=== PATIENT | female | born 1965 | race Asian ===

== ENCOUNTER → 2017-01-14 | Outpatient (CLI) | payer OTHER ==
--- NOTE | 2017-01-14 08:51 | DIAGNOSTIC IMAGING REPORT ---
ABDOMINAL ULTRASOUND, RIGHT UPPER QUADRANT HISTORY: CHRONIC HEP B. COMPARISON: Abdominal ultrasound 12/07/2014. FINDINGS: Pancreas: The pancreatic tail is obscured by overlying bowel gas. The remaining portions of the pancreas are within normal limits. Liver: The liver is echogenic consistent with fatty change. Multiple cysts with the largest in the left hepatic lobe measuring 2.9 cm. Gallbladder: No gallbladder wall thickening. Trace gallbladder sludge, unchanged. CBD: 6 mm. Right kidney: No hydronephrosis. IMPRESSION: 1. No change from the prior study. 2. Hepatic steatosis with a few hepatic cysts. 3. Trace gallbladder sludge. Electronically signed by: Reji Jernigan M.D. 01/14/2017 8:49 AM Dictated Date/Time: 01/14/2017 8:47 AM
== END | disposition home or self-care (01) ==
LOC: C.ULTR 08:09
PROVIDERS: ATTEND Family Medicine
DX: B18.1 Chronic viral hepatitis B without delta-agent (principal); K76.0 Fatty (change of) liver, not elsewhere classified; K76.89 Other specified diseases of liver

== ENCOUNTER 2017-08-16 22:51 | Emergency (ER) | payer OTHER ==
[2017-08-16] MEDS ORDERED: CLR10 PO (23:29)
[2017-08-16] MEDS ORDERED: AMINOCAPROIC (AMICAR) 5% MOUTHWASH PO ONE (23:45)
[2017-08-16] MEDS ORDERED: LIDOCAINE/EPINEPHRINE 1% 20 ML VIAL ONE (23:54)
[2017-08-17] MEDS ORDERED: AMINOCAPROIC ACID INJ 5,000 MG, WATER, STERILE FOR INJ 80 ML PO ONE ×2 (00:15)
--- NOTE | 2017-08-17 00:25 | EMERGENCY ROOM VISIT NOTE ---
History Report prepared by Jacqueline: Mariam Gonzalez Under the Supervision of: Dr. Olvin Franco D.O. First contact with patient: 23:01 Chief Complaint: BLEEDING Stated Complaint: BLEEDING FROM MOUTH History of Present Illness The patient is a 52 year old female who presents to the Emergency Room with complaints of persistent bleeding from the mouth starting at 2129. The patient had 3 teeth removed 5 days ago. She has not been eating any solid foods and she has not bumped the area. Around 2129 today she started bleeding. It has been constant. Applying pressure has not stopped the bleeding. She denies any pain, dizziness, lightheadedness, fever, chills, chest pain, SOB, nausea, or vomiting. She denies any previous surgeries. She does not have any medical problems. She is not on any blood thinners. She denies any history of bleeding problems in herself or her family. Source of History: patient, spouse/significant other Onset: 2129 Position: other (mouth) Quality: other (bleeding) Timing: other (persistent) Associated Symptoms: No fevers, No chills, No chest pain, No SOB, No nausea , No vomiting Review of Systems See HPI for pertinent positives & negatives. A total of 10 systems reviewed and were otherwise negative. Past Medical & Surgical Medical Problems: (1) No chronic problems Family History No family history of bleeding problems. Social History Smoking Status: Never Smoker Marital Status: Current/Historical Medications Scheduled Loratadine (Claritin), 10 MG PO DAILY Allergies Coded Allergies: No Known Allergies (Unverified , 08/16/17) Physical Exam Vital Signs Date Time Temp Pulse Resp B/P (MAP) Pulse Ox O2 Delivery O2 Flow Rate FiO2 08/16/17 22:55 73 19 161/81 98 Room Air Physical Exam CONSTITUTIONAL/VITAL SIGNS: Reviewed / noted above. GENERAL: Non-toxic in appearance. INTEGUMENTARY: Warm, dry, and [place]. HEAD: Normocephalic. EYES: without scleral icterus or trauma. ENT/OROPHARYNX: evidence of recent dental extraction in the upper incisors. After blood and clots were removed, there was a small area of arterial bleeding just left of the midline. LYMPHADENOPATHY/NECK: Is supple without lymphadenopathy or meningismus. RESPIRATORY: Lungs clear and equal. CARDIOVASCULAR: Regular rate and rhythm. GI/ABDOMEN: Soft and nontender. No organomegaly or pulsatile mass. No rebound or guarding. Normal bowel sounds. EXTREMITIES: Warm and well perfused. BACK: No CVA tenderness. NEUROLOGICAL: Intact without focal deficits. PSYCHIATRIC: normal affect. MUSCULOSKELETAL: Normally developed with good muscle tone. Medical Decision & Procedures Medications Administered Medications (Trade) Dose Ordered Sig/Grant Route Start Time Stop Time Status Last Admin Dose Admin Aminocaproic Acid (Amicar 5% Mouthwash) 100 ml ONE ONCE PO 08/16/17 23:45 08/16/17 23:46 DC 08/17/17 00:09 100 ML ED Course 2303: The patient was evaluated by the medical student. We discussed the findings, differential, and plan. 2334: Previous medical records were reviewed. The patient was evaluated in room C6. A complete history and physical examination was performed. 2345: Aminocaproic Acid 100 ml PO. 2346: I discussed the results and findings with the patient. She verbalized agreement of the treatment plan. She was discharged home. Medical Decision Differential diagnosis: anemia, bleeding disorder, post surgical bleed, infection. This is a 52-year-old female who presents to the ED with a chief complaint of bleeding from her gums. The patient had 3 upper teeth removed 5 days ago in [facility]. The patient states that she began having bleeding tonight, just prior to arrival. She denies being on blood thinners. Denies any trauma. No fevers. No additional symptoms. Exam as noted above. After clots removed from the mouth. There was noted to be arterial bleeding in the upper anterior gums in the area of the left upper incisor. 1% lidocaine with epinephrine was used to inject a small amount in the area to control the bleeding. Several throws of an absorbable four-point 0 Vicryl suture was placed to stop the bleeding. The patient was also given Amicar mouthwash to rinse her mouth with. She was felt to be stable for discharge. The bleeding was completely controlled at the time of disposition. Medication Reconcilliation Current Medication List: was personally reviewed by me Blood Pressure Screening Patient's blood pressure: Elevated blood pressure Blood pressure disposition: Elevated BP felt to be situational Impression Primary Impression: Bleeding gums Additional Impression: S/P tooth extraction Scribe Attestation The scribe's documentation has been prepared under my direction and personally reviewed by me in its entirety. I confirm that the note above accurately reflects all work, treatment, procedures, and medical decision making performed by me. Departure Information Dispostion Home / Self-Care Referrals Charlie Dwyer M.D. (PCP) Patient Instructions My [facility] Additional Instructions Use the Amicar mouthwash several times a day for bleeding or oozing. Follow-up with your doctor for further care and evaluation in 1-5 days. Return to the emergency department for worsening or new symptoms or any concerns. You have been examined and treated today on an emergency basis only. This is not a substitute for, or an effort to provide, complete comprehensive medical care. It is impossible to recognize and treat all injuries or illnesses in a single emergency department visit. It is therefore important that you follow up closely with your doctor. Call as soon as possible for an appointment. Problem Qualifiers
[2017-08-17 00:32] VITALS: BP 115/45; PULSE 74; O2SAT 96
[2017-08-17] MEDS ORDERED: AMOX875T PO (00:36)
[2017-08-17] MEDS ORDERED: AMOXICILLIN/CLAVULANATE TAB 875 MG TAB PO ONE (00:45)
== END 2017-08-17 00:34 | disposition home or self-care (01) ==
LOC: C.EDB 22:52 → C.EDC 08-17 00:34
DX: K91.840 Postprocedural hemorrhage of a digestive system organ or structure following a digestive system procedure (principal); Z98.818 Other dental procedure status

== ENCOUNTER 2017-08-19 04:01 | Emergency (ER) | payer OTHER ==
[~2017-08-19] VITALS: Ht 162.6 cm; Wt 66.2 kg
[~2017-08-19 04:01] MED LIST: AMOX875T PO; CLR10 PO
[2017-08-19 04:04] VITALS: TEMP 36.8; Ht 162.6 cm; Wt 66.2 kg
[2017-08-19] MEDS ORDERED: LIDOCAINE/EPINEPHRINE 1% 20 ML VIAL INFIL ONE (04:15)
[2017-08-19 04:55] VITALS: BP 119/58; PULSE 65; O2SAT 96
--- NOTE | 2017-08-20 00:21 | EMERGENCY ROOM VISIT NOTE ---
History First contact with patient: 04:09 Chief Complaint: BLEEDING Stated Complaint: BLEEDING FROM MOUTH Nursing Triage Summary: Pt had teeth pulled last week. Pt having bleeding from site. Pt unable to control it at home. History of Present Illness The patient is a 52 year old female who presents to the Emergency Room with complaints of bleeding from her gums for the past 2-3 days. Evidently 7 days ago the patient had had 3 of her upper teeth extracted in [facility]. She lives locally, and had an episode of persistent bleeding 2 days ago. She came into the ER at that time, where a Vicryl stitch was placed, and the patient had been doing well. Patient believes the stitch came loose, as she is now having repeat bleeding. She is unable to directly follow-up with her surgeon because of the distance involved. She has an appointment later today with her primary care physician. She is not on blood thinners. She states that she has been bleeding off and on for the past 6 or 7 hours. This does improve with direct pressure. Review of Systems More than 10 systems were reviewed and otherwise negative with the exception of history of present illness. Past Medical/Surgical History Medical Problems: (1) No chronic problems Family History No pertinent family history Social History Smoking Status: Never Smoker Marital Status: Current/Historical Medications Scheduled Amoxicillin & Pot Clavulanate (Augmentin 875-125 mg), 875 MG PO BID Loratadine (Claritin), 10 MG PO DAILY Physical Exam Vital Signs Date Time Temp Pulse Resp B/P (MAP) Pulse Ox O2 Delivery O2 Flow Rate FiO2 08/19/17 04:55 65 16 119/58 96 Room Air 08/19/17 04:04 36.8 65 18 135/55 96 Room Air Physical Exam VITALS: Vitals are noted on the nurse's note and reviewed by myself. Vital signs stable. GENERAL: Well-developed, well-nourished, female, who is in no acute distress and resting comfortably. Patient is cooperative with the examination. MOUTH: There are 3 upper teeth that are extracted including the middle incisors and the left incisor. The gumline is with multiple sutures in this area, however there appears to be a very small arterial bleed that is persistent. No evidence of infection. HEART: Regular rate and rhythm without murmurs gallops or rubs. LUNGS: Clear to auscultation bilaterally without wheezes, rales or rhonchi. No retractions or accessory muscle use. Medical Decision & Procedures Medications Administered Medications (Trade) Dose Ordered Sig/Grant Route Start Time Stop Time Status Last Admin Dose Admin Lidocaine/ Epinephrine (Xylocaine/Epine 1% Inj) 20 ml NOW ONCE INFIL 08/19/17 04:15 08/19/17 04:16 DC 08/19/17 04:25 20 ML Procedure Wound repair. Patient elects to have suture repair of their bleeding gumline. Verbal consent was obtained to perform the procedure. There is an abundance of materials available for the procedure. Patient is not allergic to latex. Using sterile technique the wound was cleaned. 2 ml of 1% buffered lidocaine with epi was used to anesthetize the gumline. Once the patient was anesthetized , the wound was explored and there was noted to be a small arterial bleeding underneath the space of the left upper incisor #9 tooth. The arteriole was ligated using 2 simple interrupted 4-0 vicryl sutures. Hemostasis was achieved. Patient tolerated the procedure well without complications. Blood loss was negligible. ED Course Physical exam and history were performed. Nursing notes, EMR, and Medication List were personally reviewed. Patient appears to have bleeding from her gumline after extraction of several teeth. She is a very small arterial bleed from the space underneath the #9 tooth. This area was injected with epinephrine with lidocaine and 2 Vicryl sutures were placed in an X fashion. This did provide hemostasis, and the patient tolerated this well. She does have antibiotics from her previous visit , and was asked to continue these. The patient needs to follow with her surgeon for further care. She was otherwise invited back to the ER with any new , worsening, or concerning symptoms. The chart was completed utilizing [employer] Speech Voice Recognition Software. Grammatical errors, random word insertions, pronoun errors, and incomplete sentences are an occasional consequence of this system due to software limitations, ambient noise, and hardware issues. Any formal questions or concerns about the content, text, or information contained within the body of this dictation should be directly addressed to the provider for clarification. . Medical Decision Differential diagnosis includes, but is not limited to: Laceration, abrasion, postoperative bleeding, infection, and others Impression Primary Impression: Bleeding gums Departure Information Dispostion Home / Self-Care Condition GOOD Forms HOME CARE DOCUMENTATION FORM, IMPORTANT VISIT INFORMATION Patient Instructions My [facility] Additional Instructions You were seen and evaluated today on an emergency basis only. This is not a substitute for, or an effort to provide, complete comprehensive medical care. It is not possible to recognize and treat all injuries or illnesses in a single emergency department visit. For this reason it is recommended that you followup with your primary care physician for recheck of your symptoms. He may also wish to follow with your surgeon for further care. Soft foods and liquids only for the next week. Consider putting a warm moist tea bag against the area if bleeding returns. You are welcome to return to the emergency department anytime with new, worsening, or concerning symptoms.
--- NOTE | 2017-08-27 13:52 | EDITING REQUIRED CODING QUERY ---
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 Please assist us with the question(s) below: Please place an "X" within the parenthesis (x). If other, please specify. "Postoperative" (LEATHER DRIER INSERT) is documented on the Interval Summary. Please provide further clarification of the (LEATHER DRIER INSER) ( ) Postop Infection ( ) Postop Wound Dehiscence ( ) Postop Nonhealing (X ) Other (please specify) 1.0 CM PLEASE SPECIFY LENGTH OF WOUND FOR REPAIR PROCEDURE. Thank you Sofia Sauceda
== END 2017-08-19 05:00 | disposition home or self-care (01) ==
LOC: C.EDB 04:02
DX: K91.840 Postprocedural hemorrhage of a digestive system organ or structure following a digestive system procedure (principal); Z98.818 Other dental procedure status

== ENCOUNTER → 2017-08-24 | Outpatient (CLI) | payer OTHER ==
--- NOTE | 2017-08-25 14:12 | MAMMOGRAPHY REPORT ---
BILATERAL DIGITAL SCREENING MAMMOGRAM TOMOSYNTHESIS WITH CAD: 08/24/2017 CLINICAL HISTORY: Routine screening. Patient has no complaints. TECHNIQUE: Breast tomosynthesis in addition to standard 2D mammography was performed. Current study was also evaluated with a Computer Aided Detection (CAD) system. COMPARISON: Comparison is made to exams dated: 02/20/2016 mammogram and 11/21/2013 and 08/01/2012 and mammogram - [facility]. BREAST COMPOSITION: The tissue of both breasts is heterogeneously dense, which may obscure small mas ses. FINDINGS: No suspicious masses, calcifications, or areas of architectural distortion are noted in ei ther breast. There has been no significant interval change compared to prior exams. IMPRESSION: ACR BI-RADS CATEGORY 1: NEGATIVE There is no mammographic evidence of malignancy. A 1 year screening mammogram is recommended. The pa tient will receive written notification of the results. Approximately 10% of breast cancers are not detected with mammography. A negative mammographic report should not delay biopsy if a clinically suggestive mass is present. Selma Fisher M.D. ah/:08/24/2017 16:16:12 Power Transformer Inspector: Nora DAVISON(Naseem)(Dorcas), [facility] letter sent: Normal 1/2 BI-RADS Code: ACR BI-RADS Category 1: Negative
== END | disposition home or self-care (01) ==
LOC: C.MAMM 14:14
PROVIDERS: ATTEND Family Medicine
DX: Z12.31 Encounter for screening mammogram for malignant neoplasm of breast (principal)